=== PATIENT | female | born 1965 | race Caucasian/White ===

== ENCOUNTER 2017-08-17 01:33 | Emergency (ER) | payer OTHER ==
[2017-08-17 01:57] VITALS: BP 141/87
[2017-08-17 02:31] LABS: Basophils % (Auto) 0.7 % (0.0-1.8); Eosinophils % (Auto) 1.3 % (0.0-4.3); Hematocrit 38.3 % (30.3-42.9); Hemoglobin 13.2 gm/dl (10.1-14.3); Mean Corpuscular HGB Conc 35 % (30-34); Mean Corpuscular Hemoglobin 30 pg (28-32); Mean Corpuscular Volume 87 fl (79-97); Platelet Count 210 K/mm3 (140-440); White Blood Count 10.4 K/mm3 (4.5-11.0)
[2017-08-17 02:37] LABS: INR 0.95 (0.87-1.13)
[2017-08-17 02:38] LABS: Partial Thromboplastin Time 23.7 Sec. (24.2-36.6)
[2017-08-17 02:48] LABS: Calcium 8.8 mg/dL (8.4-10.2); Chloride 102.7 mmol/L (98-107); Potassium 4.5 mmol/L (3.6-5.0)
--- NOTE | 2017-08-17 03:34 | Emergency Department Report ---
ED Lower Extremity HPI - General Chief Complaint: Extremity Injury, Lower Stated Complaint: LOWER BACK PAIN Time Seen by Provider: 08/17/17 03:12 Source: patient Mode of arrival: Ambulatory Limitations: No Limitations - History of Present Illness Initial Comments: pt is a 51 y/o female with hx CRD who presents for right calf pain x 5 days , worsening with swelling, and tightness as " I felt something pop and it immediately became tight and swollen now very pain to walk" and calf is hot to touch", pain described as 6/10 radiating from right LE to right groin, MD Complaint: leg injury Onset/Timin -: days(s) Injury: Leg: Right (calf radiating to right groin ) Type of Injury: hyperextension Place: home Improves With: nothing Worsens With: weight bearing, movement, palpation Context: other (hyperextension of right calf ) Associated Symptoms: snap/pop sensation, swelling, numbness, tingling, able to partially bear weight - Related Data Home Medications Medication Instructions Recorded Confirmed Last Taken Clonidine 0.1 mg PO HS 08/17/17 08/17/17 Unknown Fenofibrate [Tricor] 1 tab PO DAILY 08/17/17 08/17/17 Unknown HCTZ 12.5 mg PO DAILY 08/17/17 08/17/17 Unknown Losartan Potassium 100 mg PO DAILY 08/17/17 08/17/17 Unknown Propranolol 10 mg PO DAILY 08/17/17 08/17/17 Unknown amLODIPine 10 mg PO HS 08/17/17 08/17/17 Unknown Previous Rx's Medication Instructions Recorded Last Taken Type Acetaminophen [Tylenol Extra 1,000 mg PO QID PRN #60 tablet 08/17/17 Unknown Rx Strength] Cyclobenzaprine [Flexeril] 10 mg PO BID PRN #20 tablet 08/17/17 Unknown Rx Allergies Allergy/AdvReac Type Severity Reaction Status Date / Time No Known Allergies Allergy Unverified 08/17/17 01:58 ED Review of Systems ROS: Stated complaint: LOWER BACK PAIN Other details as noted in HPI Constitutional: denies: chills, fever Eyes: denies: eye pain, eye discharge, vision change ENT: denies: ear pain, throat pain Respiratory: denies: cough, shortness of breath, wheezing Cardiovascular: denies: chest pain, palpitations Endocrine: no symptoms reported Gastrointestinal: denies: abdominal pain, nausea, diarrhea Genitourinary: denies: urgency, dysuria, discharge Musculoskeletal: myalgia Skin: denies: rash, lesions, change in color, change in hair/nails, pruritus Neurological: as per HPI. denies: headache, weakness, numbness, paresthesias, confusion, abnormal gait, vertigo Psychiatric: denies: anxiety, depression Hematological/Lymphatic: denies: easy bleeding, easy bruising ED Past Medical Hx - Past Medical History Hx Hypertension: Yes Hx Renal Disease: Yes (CKD) - Surgical History Past Surgical History?: No - Social History Smoking Status: Never Smoker Substance Use Type: None - Medications Home Medications: Home Medications Medication Instructions Recorded Confirmed Last Taken Type Acetaminophen [Tylenol Extra 1,000 mg PO QID PRN #60 tablet 08/17/17 Unknown Rx Strength] Clonidine 0.1 mg PO HS 08/17/17 08/17/17 Unknown History Cyclobenzaprine [Flexeril] 10 mg PO BID PRN #20 tablet 08/17/17 Unknown Rx Fenofibrate [Tricor] 1 tab PO DAILY 08/17/17 08/17/17 Unknown History HCTZ 12.5 mg PO DAILY 08/17/17 08/17/17 Unknown History Losartan Potassium 100 mg PO DAILY 08/17/17 08/17/17 Unknown History Propranolol 10 mg PO DAILY 08/17/17 08/17/17 Unknown History amLODIPine 10 mg PO HS 08/17/17 08/17/17 Unknown History ED Physical Exam - General Limitations: No Limitations General appearance: alert, in no apparent distress - Head Head exam: Present: atraumatic, normocephalic - Eye Eye exam: Present: normal appearance - ENT ENT exam: Present: mucous membranes moist - Neck Neck exam: Present: normal inspection, full ROM. Absent: tenderness, meningismus, lymphadenopathy, thyromegaly - Respiratory Respiratory exam: Present: normal lung sounds bilaterally. Absent: respiratory distress, wheezes, rales, rhonchi, stridor, chest wall tenderness, accessory muscle use, decreased breath sounds, prolonged expiratory - Cardiovascular Cardiovascular Exam: Present: regular rate, normal rhythm, normal heart sounds. Absent: systolic murmur, diastolic murmur, rubs, gallop - GI/Abdominal GI/Abdominal exam: Present: soft, rigid, normal bowel sounds, hyperactive bowel sounds. Absent: distended, tenderness, guarding, rebound, organomegaly, mass, bruit, pulsatile mass, hernia - Extremities Exam Extremities exam: Present: normal inspection, full ROM, tenderness, normal capillary refill, calf tenderness. Absent: pedal edema, joint swelling - Expanded Lower Extremity Exam Right Hip exam: Present: normal inspection, full ROM Upper Leg exam: Present: normal inspection, full ROM. Absent: tenderness, swelling Knee exam: Present: normal inspection, full ROM Lower Leg exam: Present: full ROM, tenderness (mild posterior calf lateral tenderness ), swelling. Absent: abrasion, laceration, ecchymosis, deformity, crepidus, dislocation, erythema, palpable cord, Navid's sign Ankle exam: Present: normal inspection, full ROM Foot/Toe exam: Present: normal inspection, full ROM Neuro vascular tendon exam: Present: no vascular compromise. Absent: pulse deficit, abnormal cap refill, motor deficit, sensory deficit, tendon deficit, extremity cold to touch, pallor, abnormal 2-point discrimination, decreased fine /light touch, foot drop, peroneal nerve deficit, significant pain with passive ROM of distal joint Gait: Positive: observed and normal - Back Exam Back exam: Present: normal inspection, full ROM. Absent: tenderness, CVA tenderness (R), CVA tenderness (L), muscle spasm, paraspinal tenderness, vertebral tenderness, rash noted - Neurological Exam Neurological exam: Present: alert, oriented X3, motor sensory deficit, reflexes normal - Psychiatric Psychiatric exam: Present: normal affect, normal mood - Skin Skin exam: Present: warm, dry, intact, normal color. Absent: rash ED Course Vital Signs 08/17/17 01:40 Temperature 98.2 F Pulse Rate 79 Blood Pressure 141/87 O2 Sat by Pulse 98 Oximetry ED Lower Extremity MDM - Lab Data Result diagrams: 08/17/17 02:10 08/17/17 02:10 - Medical Decision Making pt is a 51 y/o female with hx CRD who presents for right calf pain x 5 days , worsening with swelling, and tightness as " I felt something pop and it immediately became tight and swollen now very pain to walk" and calf is hot to touch", pain described as 6/10 radiating from right LE to right hip and buttocks , exam: mild right posterior lateral calf tenderness to palpation, no erythema no ecchymosis, neg navid's sign, Plan: US RLE r/o DVTordered however pt refused to wait to complete study, advised will follow up primary care for same, plan: muscle relaxant, tylenol, and moist heat therapy pt will follow up with Dr. Callahan in 2-3 days given strict instructions to return to emergency if symptoms worsen pt verbalized agreement and understanding of same. pt is current a/o x3 ambulatory gait steady at this time in a stable condition Critical care attestation.: If time is entered above; I have spent that time in minutes in the direct care of this critically ill patient, excluding procedure time. ED Disposition Clinical Impression: Strain of calf muscle Qualifiers: Encounter type: initial encounter Laterality: right Qualified Code(s): S86.811A - Strain of other muscle(s) and tendon(s) at lower leg level, right leg , initial encounter Disposition: TO HOME OR SELFCARE Is pt being admited?: No Does the pt Need Aspirin: No Condition: Good Instructions: Muscle Strain (ED), Musculoskeletal Pain (ED) Prescriptions: Acetaminophen [Tylenol Extra Strength] 1,000 mg PO QID PRN #60 tablet PRN Reason: Pain Cyclobenzaprine [Flexeril] 10 mg PO BID PRN #20 tablet PRN Reason: Muscle Spasm Referrals: PRIMARY CARE, [Primary Care Provider] - 3-5 Days FARZANA CALLAHAN MD [Staff Physician] - 3-5 Days Forms: Work/School Release Form(ED) Time of Disposition: 04:47
== END 2017-08-17 04:53 | disposition home or self-care (01) ==
LOC: ED 01:33
DX: S86.911A Strain of unspecified muscle(s) and tendon(s) at lower leg level, right leg, initial encounter (principal); I12.9 Hypertensive chronic kidney disease with stage 1 through stage 4 chronic kidney disease, or unspecified chronic kidney disease; N18.9 Chronic kidney disease, unspecified; X58.XXXA Exposure to other specified factors, initial encounter; Y93.89 Activity, other specified; Y92.89 Other specified places as the place of occurrence of the external cause; Y99.8 Other external cause status
CPT/HCPCS: 36415; 80048; 85025; 85610; 85730; 99283

== ENCOUNTER 2017-09-03 21:26 | Emergency (ER) | payer OTHER ==
[2017-09-03 21:34] VITALS: BP 167/94
[2017-09-03 22:13] LABS: Basophils # (Auto) 0.1 K/mm3 (0.0-0.1); Basophils % (Auto) 0.7 % (0.0-1.8); Eosinophils # (Auto) 0.1 K/mm3 (0.0-0.4); Eosinophils % (Auto) 1.6 % (0.0-4.3); Hematocrit 38.3 % (30.3-42.9); Hemoglobin 12.6 gm/dl (10.1-14.3); Lymphocytes # (Auto) 1.7 K/mm3 (1.2-5.4); Lymphocytes % (Auto) 18.4 % (13.4-35.0); Mean Corpuscular HGB Conc 33 % (30-34); Mean Corpuscular Hemoglobin 29 pg (28-32); Mean Corpuscular Volume 88 fl (79-97); Monocytes # (Auto) 0.7 K/mm3 (0.0-0.8); Platelet Count 209 K/mm3 (140-440); Red Blood Count 4.34 M/mm3 (3.65-5.03); Red Cell Distribution Width 13.3 % (13.2-15.2)
[2017-09-03 22:15] LABS: Albumin 3.9 g/dL (3.9-5); Calcium 8.8 mg/dL (8.4-10.2)
[2017-09-03 22:27] LABS: Bilirubin,Urine NEG (Negative); Blood,Urine MOD (Negative); Color,Urine Red (Yellow); Nitrite,Urine NEG (Negative); RBC,Urine > 182.0 /HPF (0.0-6.0); Urobilinogen,Urine < 2.0 mg/dL (<2.0)
== END 2017-09-03 23:55 | disposition left against medical advice (07) ==
LOC: ED 21:26
DX: R10.30 Lower abdominal pain, unspecified (principal); Z53.21 Procedure and treatment not carried out due to patient leaving prior to being seen by health care provider
CPT/HCPCS: 36415; 80053; 81001; 84703; 85025